=== PATIENT | female | born 1980 | race Caucasian/White ===

== ENCOUNTER 2020-04-16 06:30 | Inpatient (IN) | payer OTHER ==
[2020-04-16 07:50] VITALS: BMI 29.4
[2020-04-16] MEDS ORDERED: ELECTROLYTE-148 SOLN 500 ML IV ONE (08:20)
[2020-04-16] MEDS ORDERED: CITRIC ACID/SODIUM CITRATE 30 ML UNIT-DOSE CUP PO ONE (08:21)
--- NOTE | 2020-04-16 08:26 | HP ---
Past Medical History - Admission Chief Complaint: Scheduled Repeat History of Present Illness: 39yo @ 39wks by LMP/sono, MARGARET 04/23/20 here for scheduled RLTCS No VB/LOF.+ contractions. 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: Alzheimer's, CVA, Dementia, Migraine, Multiple Sclerosis, Peripheral Neuropathy, Parkinson's, Seizure, Syncope, TIA, Vertigo, Other Cardiovascular: No: AFIB, Aneurysm, Aortic Insufficiency, Aortic Stenosis, CAD, CHF, Deep Vein Thrombosis, HTN, Hyperlipdemia, [place], Mitral Insufficiency, Mitral Stenosis, Murmur, Pulmonary Hypertension, Other Pulmonary: No: Asthma, Bronchitis, Cancer, COPD, O2 Dependent, Pneumonia, Previously Intubated, Pulmonary Embolus, Pulmonary Fibrosis, Sleep Apnea, Other Gastrointestinal: No: Ascites, Cancer, Constipation, Crohn's Disease, Diverticulitis, Diverticulosis, Esophageal Varices, Gastritis, GERD, GI Bleed, Hemorrhoids, Hiatal Hernia, Inflamatory Bowel Disease, Irritable Bowel Disease, Pancreatitis, Peptic Ulcer Disease, Ulcerative Colitis, Other Hepatobiliary: No: Cirrhosis, Cholelithiasis, Cholecystitis, Choledocholithiasis, Hepatitis A, Hepatitis B, Hepatitis C, Other Renal/: No: Renal Failure, Renal Inusuff, BPH, Cancer, Hematuria, Hemodialysis, Neurogenic Bladder, Renal Calculi, UTI, Other Reproductive: No: Ectopic , Endometriosis, Fibroids, PID, Polycystic Ovary Syndrome, Postmenopausal, Other ...: 2 ...Para: 1 ...Term: 1 ...: 0 ...Spon : 0 ...Induced : 0 ...Living Children: 1 ...Multiple Gestation: 0 ... Weeks Gestation by Dates: 39.0 ...EDC by Sono: 04/23/20 Heme/Onc: Yes: Anemia Infectious Disease: No: AIDS, C-Diff, Herpes Zoster, HIV, MRSA, STD's, Tuberculosis, VREF, Other Psych: No: Addictions, Anxiety, Bipolar, Depression, Panic, Psychosis, Schi zophrenia, Other Musculoskeletal: No: Bursitis, Chronic low back pain, Hemiparesis, Hemiplegia, Osteoarthritis, Paraplegia, Other Rheumatology: No: Fibromyalgia, Gout, Lupus, Rheumatoid Arthritis, Sarcoidosis, Vasculitis, Other ENT: No: Allergic Rhinitis, Sinusitis, Other Dermatology: No: Basal Cell, Cellulitis, Eczema, Melanoma, Psoriasis, Squamous Cell, Other - Past Surgical History Past Surgical History: Yes: Hx Myomectomy: No Hx Transabdominal Cerclage: No - Smoking History Smoking history: Never smoked Have you smoked in the past 12 months: No - Alcohol/Substance Use Hx Alcohol Use: No - Social History Usual Living Arrangement: Yes: With Spouse Do you think of yourself as: Straight/Heterosexual ADL: Independent History of Recent Travel: No Home Medications - Allergies Allergies/Adverse Reactions: Allergies Allergy/AdvReac Type Severity Reaction Status Date / Time No Known Allergies Allergy Verified 04/16/20 07:35 - Home Medications Home Medications: Ambulatory Orders Pnv No.95/Ferrous Fum/Folic AC [ Vitamin Tablet] 1 each PO DAILY 04/16 Review of Systems - Review of Systems Constitutional: reports: No Symptoms Cardiovascular: reports: No Symptoms Respiratory: reports: No Symptoms Gastrointestinal: reports: No Symptoms Physical Exam - Maternity Constitutional: Yes: Well Nourished, No Distress, Calm - Abdominal Exam/OB Number of Fetuses: Single Presentation: Vertex Contractions: Yes Regularity: Irregular Intensity: Mild/Mod Monitor Mode: External Heart Rate Location: [facility] Category: I Accelerations: Non-Uniform Decelerations: None - Vaginal Exam/OB Vaginal Bleeding: No Speculum Exam: No Presentation: Vertex/Position Station: -3 - Physical Exam Edema: No Imaging - Results Ultrasound: Report Reviewed Problem List - Problems (1) 39 weeks gestation of Code(s): Z3A.39 - 39 WEEKS GESTATION OF Assessment/Plan 39yo @ 39wks here for scheduled RLTCS Admit to L&D Admission labs previously done, COVID negative NST reactive IVFs, Castrejon and SCDs Ancef Risks reviewed including bleeding/transfusion/infection/injury to bladder/bowel/vessels/adnexa/nerves. All questions answered. Consents signed. Proceed to OR Itzel Fitzgerald Md
[2020-04-16] MEDS ORDERED: ELECTROLYTE-148 SOLN 1,000 ML IV SCH (08:30)
[2020-04-16] MEDS ORDERED: morphine SULFATE/PF 0.5 MG/ML (2cc Syringe - QUVA) ONE (08:44)
[2020-04-16] MEDS ORDERED: ceFAZolin SODIUM 1 GM VIAL ONE (09:01)
[2020-04-16] MEDS ORDERED: OXYTOCIN 10 UNITS/ML VIAL ONE (09:43)
[2020-04-16] MEDS ORDERED: KETOROLAC TROMETHAMINE 30 MG/1 ML VIAL ONE (09:43)
[2020-04-16] MEDS ORDERED: METHYLERGONOVINE MALEATE 0.2 MG/1 ML AMP IM PRN (09:52)
[2020-04-16] MEDS ORDERED: oxyCODONE HCL 5 MG TABLET PO PRN (09:52)
--- NOTE | 2020-04-16 09:52 | OP ---
Operative Note - Note: Operative Date: 04/16/20 Pre-Operative Diagnosis: 39 week , Prior , Desires Elective Repeat Operation: Repeat Low Transverse Findings: VFI, LOT, no nuchal, no meconium. Weight pending. Apgars 9/9. Normal tubes and ovaries bilaterally Post-Operative Diagnosis: Same as Pre-op Surgeon: Yola Fitzgerald Payroll Officer: Juanito Camacho Anesthesiologist/COMMAND AND CONTROL SPECIALIST: Dustin Rodríguez Anesthesia: Spinal Estimated Blood Loss (mls): 500 Drains, Volume Out (mls): 100 (clear urine) Operative Report Dictated: Yes
[2020-04-16] MEDS ORDERED: ACETAMINOPHEN INJECTION 100 ML IVPB ONE (09:55)
[2020-04-16] MEDS ORDERED: morphine SULFATE/PF 0.5 MG/ML (2cc Syringe - QUVA) EP ONE (09:57)
[2020-04-16] MEDS ORDERED: ONDANSETRON 4 MG/2 ML VIAL IVPUSH PRN ×2 (09:57)
[2020-04-16] MEDS ORDERED: LACTATED RINGERS SOLUTION 1,000 ML IV SCH (10:00)
[2020-04-16] MEDS ORDERED: OXYTOCIN 20 UNITS in 0.9% NS 20 UNIT/1,000 ML INFUS.BAG IV SCH (10:00)
[2020-04-16] MEDS ORDERED: OXYTOCIN 20 UNITS in 0.9% NS 20 UNIT/1,000 ML INFUS.BAG IV ONE (10:22)
[2020-04-16] MEDS ORDERED: IBUPROFEN 800 MG/8 ML IJ IVPB ONE (11:51)
[2020-04-16] MEDS: IBUPROFEN 800 MG/8 ML IJ IVPB PRN ×2 (12:00→23:52)
[2020-04-16] MEDS: FERROUS SO4 325 MG TABLET (FP) PO SCH ×2 (12:08→17:03)
[2020-04-16] MEDS: PRENATAL VITAMINS W/ FOLIC ACID TABLET (FP) PO SCH (12:12)
[2020-04-16] MEDS ORDERED: ACETAMINOPHEN 1000 MG/100 ML VIAL (NON FORMULARY) IVPB ONE (12:30)
--- NOTE | 2020-04-16 17:52 | OP ---
DATE OF OPERATION: 04/16/2020 PREOPERATIVE DIAGNOSIS: A 39-week , prior section, desires elective repeat section. POSTOPERATIVE DIAGNOSIS: A 39-week , prior section, desires elective repeat section. PROCEDURE: Repeat low transverse section. ANESTHESIA: Spinal. ESTIMATED BLOOD LOSS: 500. INTRAVENOUS FLUIDS: Per anesthesia record. SURGEON: Yola Fitzgerald MD. LUBE ATTENDANT: LAI Banegas. FINDINGS: Viable female LOT presentation, no nuchal, no meconium, Apgars 9 and 9, weight pending, normal tubes and ovaries bilaterally, urine output 100 mL of clear urine at the end of the procedure. COMPLICATIONS: None. CONDITION: Stable to recovery room. DESCRIPTION OF PROCEDURE: After the appropriate consents were signed, patient was taken to the operating room. Spinal anesthesia was administered. Sterile Castrejon catheter was inserted in the operating room. The abdomen was prepped and draped in the normal sterile fashion. Anesthesia was confirmed. A timeout was performed confirming correct patient and procedure. A Pfannenstiel skin incision was then made through the prior incision and carried through to the underlying layers until the fascia was nicked in the midline. Fascia was then extended laterally with the Christine scissors. The inferior aspect of the fascia was grasped with the Porfirio clamps, tented upwards, and the rectus muscles dissected off bluntly and with Christine scissors. Attention was then paid to the superior aspect which was taken down in a similar fashion. The rectus muscles were incised in the midline to allow for separation. The peritoneum was entered bluntly. Bladder blade was inserted. The bladder flap was created with a Metzenbaum and gentle dissection. Uterus was then incised in a low transverse fashion. Clear amniotic fluid was noted. Infant's head was delivered without difficulty as were the remaining shoulders and body. The cord was clamped and cut, the was handed off to the awaiting NICU staff. The placenta was then removed manually. The uterus was cleared of all clot and debris as were the gutters. The hysterotomy was closed in a single layer with a 1-0 Vicryl with good hemostasis. Adnexa were inspected and noted to be normal. Hysterotomy was reexamined and noted to be hemostatic. The muscles were then closed with a 2-0 chromic. The fascia was reapproximated with a 0 Vicryl. Subcutaneous fat was closed with a 3-0 plain. The skin was closed with 3-0 Vicryl. Bandages and dressings were applied. Sponge, lap, needle count was correct x3. Patient did receive Ancef at the start of the procedure. She was taken from the operating room to the recovery area in stable condition. MD RAHUL MCGRATH/[id number]
[2020-04-17] MEDS: ACETAMINOPHEN 325 MG TABLET (FP) PO PRN ×3 (06:14→21:14)
[2020-04-17] MEDS: IBUPROFEN 600 MG TABLET (FP) PO PRN ×3 (06:15→21:15)
[2020-04-17] MEDS: SIMETHICONE 80 MG TAB.CHEW (FP) PO PRN ×3 (06:15→21:14)
[2020-04-17 07:52] LABS: BASO % 0.3 % (0-2.0); EOS % 0.8 % (0-4.5); HEMATOCRIT 31.6 % (32.4-45.2); HEMOGLOBIN 10.6 GM/dL (10.7-15.3); LYMPH % 12.6 % (8-40); MCH 33.3 pg (25.7-33.7); MCHC 33.7 g/dl (32.0-36.0); MEAN PLT VOLUME 9.2 fl (7.5-11.1); MONO % 6.4 % (3.8-10.2); NEUT % 79.9 % (42.8-82.8); PLATELET COUNT 122 K/MM3 (134-434); RBC 3.19 M/mm3 (3.60-5.2); RDW 13.3 % (11.6-15.6); WHITE BLOOD COUNT 12.7 K/mm3 (4.0-10.0)
[2020-04-17] MEDS: PRENATAL VITAMINS W/ FOLIC ACID TABLET (FP) PO SCH (09:39)
[2020-04-17] MEDS: FERROUS SO4 325 MG TABLET (FP) PO SCH ×2 (09:39→16:46)
[2020-04-17] MEDS ORDERED: BISACODYL 10 MG SUPP.RECT RC PRN (09:52)
[2020-04-17] MEDS ORDERED: DIPHTH,PERTUSS(ACELL),TET 0.5 ML DISP.SYRIN IM ONE (10:00)
[2020-04-17] MEDS ORDERED: FLU VACCINE (FLULAVAL) PF 60 MCG/0.5 ML SYRINGE 2020-2021 IM ONE (10:00)
--- NOTE | 2020-04-17 13:43 | PN ---
Post Progress Note - Subjective Subjective: No issues overnight. Pain controlled. No fevers/chills. No N/V. Lochia < menses. Post Day: 1 Type of Delivery: Repeat C/S Vital Signs: Vital Signs Temperature 98.2 F 04/17/20 10:00 Pulse Rate 84 04/17/20 10:00 Respiratory Rate 18 04/17/20 10:00 Blood Pressure 118/65 04/17/20 10:00 O2 Sat by Pulse Oximetry (%) 98 04/16/20 14:00 Uterus: Yes: Fundus below umbilicus Incision: Yes: Dressing dry and intact, Sutures intact Abdomen/GI: Yes: Abdomen soft, Tolerating PO Lochia: Yes: Rubra Lochia, amount: Small Extremities: Yes: Calves non-tender Perineum: Yes: Intact Activity: Ambulating - Labs Labs: CBC WBC 12.7 K/mm3 (4.0-10.0) H 04/17/20 07:03 RBC 3.19 M/mm3 (3.60-5.2) L 04/17/20 07:03 Hgb 10.6 GM/dL (10.7-15.3) L 04/17/20 07:03 Hct 31.6 % (32.4-45.2) L D 04/17/20 07:03 MCV 99.0 fl (80-96) H 04/17/20 07:03 MCH 33.3 pg (25.7-33.7) 04/17/20 07:03 MCHC 33.7 g/dl (32.0-36.0) 04/17/20 07:03 RDW 13.3 % (11.6-15.6) 04/17/20 07:03 Plt Count 122 K/MM3 (134-434) L 04/17/20 07:03 MPV 9.2 fl (7.5-11.1) 04/17/20 07:03 Absolute Neuts (auto) 10.2 K/mm3 (1.5-8.0) H 04/17/20 07:03 Neutrophils % 79.9 % (42.8-82.8) 04/17/20 07:03 Lymphocytes % 12.6 % (8-40) D 04/17/20 07:03 Monocytes % 6.4 % (3.8-10.2) 04/17/20 07:03 Eosinophils % 0.8 % (0-4.5) 04/17/20 07:03 Basophils % 0.3 % (0-2.0) 04/17/20 07:03 Nucleated RBC % 0 % (0-0) 04/17/20 07:03 Problem List - Problems (1) 39 weeks gestation of Code(s): Z3A.39 - 39 WEEKS GESTATION OF Assessment/Plan 39yo s/p RLTCS, POD#1 Routine PP care PO pain control Labs reviewed OOB, ambulate D/C to home by POD#3 Itzel Fitzgerald Md
[2020-04-18 00:38] VITALS: BP 128/82; PULSE 85; TEMP 98.9
[2020-04-18] MEDS: PRENATAL VITAMINS W/ FOLIC ACID TABLET (FP) PO SCH (09:05)
[2020-04-18] MEDS: FERROUS SO4 325 MG TABLET (FP) PO SCH (09:05)
--- NOTE | 2020-04-18 12:29 | PN ---
Post Progress Note - Subjective Subjective: Feeling well. +BM. Voiding freely. Lochia decreasing. Desires d/c to home Post Day: 2 Type of Delivery: Repeat C/S Vital Signs: Vital Signs Temperature 98.9 F 04/18/20 09:16 Pulse Rate 85 04/18/20 09:16 Respiratory Rate 18 04/18/20 09:16 Blood Pressure 128/82 04/18/20 09:16 O2 Sat by Pulse Oximetry (%) 98 04/16/20 14:00 Extremities: Yes: Calf tenderness - Labs Labs: CBC WBC 12.7 K/mm3 (4.0-10.0) H 04/17/20 07:03 RBC 3.19 M/mm3 (3.60-5.2) L 04/17/20 07:03 Hgb 10.6 GM/dL (10.7-15.3) L 04/17/20 07:03 Hct 31.6 % (32.4-45.2) L D 04/17/20 07:03 MCV 99.0 fl (80-96) H 04/17/20 07:03 MCH 33.3 pg (25.7-33.7) 04/17/20 07:03 MCHC 33.7 g/dl (32.0-36.0) 04/17/20 07:03 RDW 13.3 % (11.6-15.6) 04/17/20 07:03 Plt Count 122 K/MM3 (134-434) L 04/17/20 07:03 MPV 9.2 fl (7.5-11.1) 04/17/20 07:03 Absolute Neuts (auto) 10.2 K/mm3 (1.5-8.0) H 04/17/20 07:03 Neutrophils % 79.9 % (42.8-82.8) 04/17/20 07:03 Lymphocytes % 12.6 % (8-40) D 04/17/20 07:03 Monocytes % 6.4 % (3.8-10.2) 04/17/20 07:03 Eosinophils % 0.8 % (0-4.5) 04/17/20 07:03 Basophils % 0.3 % (0-2.0) 04/17/20 07:03 Nucleated RBC % 0 % (0-0) 04/17/20 07:03 Problem List - Problems (1) 39 weeks gestation of Code(s): Z3A.39 - 39 WEEKS GESTATION OF Assessment/Plan 39yo s/p RLTCS, POD#2 Routine PP care PO pain control Labs reviewed OOB, ambulate D/C to home today per pt request Itzel Fitzgerald Md
--- NOTE | 2020-04-18 12:30 | DS ---
Physical Examination Vital Signs: Vital Signs Temperature 98.9 F 04/18/20 09:16 Pulse Rate 85 04/18/20 09:16 Respiratory Rate 18 04/18/20 09:16 Blood Pressure 128/82 04/18/20 09:16 O2 Sat by Pulse Oximetry (%) 98 04/16/20 14:00 Constitutional: Yes: Well Nourished, No Distress, Calm Eyes: Yes: WNL, Conjunctiva Clear, EOM Intact HENT: Yes: WNL, Atraumatic, Normocephalic Neck: Yes: WNL, Supple, Trachea Midline Cardiovascular: Yes: WNL, Regular Rate and Rhythm Respiratory: Yes: WNL, Regular, CTA Bilaterally Gastrointestinal: Yes: WNL, Normal Bowel Sounds Musculoskeletal: Yes: WNL Extremities: Yes: WNL Edema: No Integumentary: Yes: WNL Neurological: Yes: WNL, Alert, Oriented ...Motor Strength: WNL Psychiatric: Yes: WNL Labs: CBC, BMP 04/17/20 07:03 Discharge Summary Problems reviewed: Yes Reason For Visit: ADMIT C/SECTION Current Active Problems 39 weeks gestation of (Acute) Procedures: Principal: Repeat Hospital Course: Patient presented for a scheduled Repeat She had an uncomplicated RLTCS She had an uncomplicated PP course and met all postoperative milestones She requested discharge home on POD#2 Itzel Fitzgerald MD Condition: Stable - Instructions Diet, Activity, Other Instructions: Regular Diet Follow up in one week for an incision check with Dr. Fitzgerald Referrals: Yola Fitzgerald MD [Staff Physician] - Disposition: HOME - Home Medications Comprehensive Discharge Medication List: Ambulatory Orders Pnv No.95/Ferrous Fum/Folic AC [ Vitamin Tablet] 1 each PO DAILY 04/16/20 Breast Pump 1 each MC 5XD 30 Days #1 each 04/17/20 Ibuprofen 600 mg PO Q6H PRN #30 tablet 04/17/20 Oxycodone HCl/Acetaminophen [Percocet 5-325 mg Tablet -] 1 - 2 tab PO Q6H PRN #20 tab MDD 4 04/17/20
--- NOTE | 2020-04-21 17:09 | PATH ---
Surgical Pathology Report Patient Name: JENNIFER HANNAH Med. Rec. 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 Electronically Signed Leda Westfall M.D. Gross Description The specimen is received fresh labeled placenta and is a 452 gram, 18.0 x 14.5 x 2.7 cm. placenta with attached membranes and umbilical cord. The attached membranes are patel, translucent with focal opacities and insert marginally. The umbilical cord measures 32 cm. in length and averages 1 cm. in diameter. The cord inserts eccentrically, 5 cm. to the nearest margin. No true knots or strictures are identified. Cut surface of the umbilical cord reveals 3 vessels. The surface is velazquez-blue with minimal fibrin deposition and appropriate caliber vessels. The maternal surface is red-brown with focal defects. Sectioning reveals red-brown, spongy parenchyma. No lesions are identified. Glass Sander sections are submitted in three cassettes as follows: 1- membrane rolls and umbilical cord; 2-3- full thickness sections of placenta. DL/04/20/2020 saudi/04/20/2020
== END 2020-04-18 13:05 | disposition home or self-care (01) | DRG 540 ==
LOC: JLDR 06:30 → J3W 15:07
PROVIDERS: ADMIT Obstetrics & Gynecology; ATTEND Obstetrics & Gynecology
PROC: 10D00Z1 Extraction of Products of Conception, Low, Open Approach (ICD-10-PCS; principal; 2020-04-16)
DX: O82 Encounter for cesarean delivery without indication (principal); O34.211 Maternal care for low transverse scar from previous cesarean delivery; Z3A.39 39 weeks gestation of pregnancy; Z37.0 Single live birth; O99.02 Anemia complicating childbirth; D64.9 Anemia, unspecified
CPT/HCPCS: 36415; 85025; 88307-TC; 90715; J0131; Q2036